=== PATIENT | female | born 1990 | race Caucasian/White ===

== ENCOUNTER 2016-07-31 00:38 | Emergency (ER) | payer MEDICAID ==
[~2016-07-31] VITALS: Ht 167.6 cm; Wt 56.7 kg
[2016-07-31] MEDS ORDERED: IV NS 0.9% 1,000 ML BAG IV ONE (01:00)
[2016-07-31] MEDS ORDERED: IV SET PRIMARY 1 EA INFUS.SET MC ONE (01:02)
[2016-07-31] MEDS ORDERED: IV NS 0.9% 1,000 ML ONE (01:02)
--- NOTE | 2016-07-31 01:14 | NUR ---
PT PRESENTED TO THE ER WITH A C/O ABD PAIN. PT STATED THAT SHE USES DRUGS AND IS 7 MONTHS .
[2016-07-31 01:15] LABS: HEMATOCRIT 31 % (33-45); HEMOGLOBIN 10.3 g/dL (11.5-14.8); LYMPHOCYTES # (AUTO) 0.5 /CMM (0.8-4.8); LYMPHOCYTES % (AUTO) 2.2 % (20.0-44.0); MEAN CORPUSCULAR HEMOGLOBIN 27 PG (26.0-33.0); MEAN CORPUSCULAR HGB CONC 34 g/dl (31.0-36.0); MEAN CORPUSCULAR VOLUME 81 fL (82-100); MONOCYTES # (AUTO) 0.7 /CMM (0.1-1.30); NEUTROPHILS % (AUTO) 94.8 % (43.0-81.0); PLATELET COUNT (AUTO) 349 /CMM (150-450); RDW COEFFICIENT OF VARIATION 13.3 (11.5-15.0); RED BLOOD CELL COUNT(AUTO) 3.78 MIL/uL (4.0-5.2); WHITE BLOOD COUNT (AUTO) 22.2 K/uL (4.3-11.0)
[2016-07-31 01:32] LABS: CALCIUM, SERUM 8.4 mg/dL (8.5-10.1); CREATININE 0.5 mg/dL (0.6-1.3); POTASSIUM 3.2 mmol/L (3.5-5.1)
[2016-07-31 01:39] LABS: INR 0.94 (0.87-1.13); PROTHROMBIN TIME 10.2 SECS (9.5-12.7)
--- NOTE | 2016-07-31 01:57 | NUR ---
PT IS C/O CRAMPING. URINE SAMPLE OBTAINED AND SENT TO LAB.
[2016-07-31 01:58] LABS: BAND % (MANUAL) 14 % (0.0-5.0); LYMPHOCYTES % (MANUAL) 1 % (16-48); MONOCYTES % (MANUAL) 3 % (0-11.0); NEUTROPHILS % (MANUAL) 82 (42-76)
[2016-07-31 01:59] LABS: BASOPHILS % (MANUAL) 0 % (0.0-2.0); EOSINOPHILS % (MANUAL) 0 % (0-4); PLATELET ESTIMATE ADEQUATE
--- NOTE | 2016-07-31 02:00 | NUR ---
PT IS C/O CRAMPING PAIN AND WANTS PAIN MEDICATION. PT WAS TOLD WHY WE CAN'T GIVE HER PAIN MEDICATION AT THIS TIME. PT WAS TOLD THAT WE ARE WAITING FOR THE US TECH TO ARRIVE FOR AN ULTRASOUND. PT STATED: "IF THE BABY HAS NO HEARTBEAT CAN I GET MEDICATION AFTER THE ULTRASOUND?". DR. NUÑEZ WAS TOLD RE: PT'S STATEMENT.
--- NOTE | 2016-07-31 02:06 | NUR ---
US IS AT THE BEDSIDE.
[2016-07-31 02:17] LABS: BILIRUBIN,URINE NEGATIVE (NEGATIVE); BLOOD, URINE 3+ Ery/uL (NEGATIVE); COLOR,URINE YELLOW (YELLOW); KETONES,URINE 3+ (NEGATIVE); LEUKOCYTE ESTERASE ,URINE 1+ (NEGATIVE); NITRITE, URINE NEGATIVE (NEGATIVE); PH,URINE 8.5 (5.0-8.0); PROTEIN,URINE 2+ mg/dl (NEGATIVE); UGLUCOSE NEGATIVE (NEGATIVE)
[2016-07-31 02:23] LABS: APPEARANCE,URINE CLOUDY (CLEAR)
[2016-07-31 02:25] LABS: RBC,URINE TOO NUMEROUS TO COUN /HPF (0-2)
[2016-07-31 02:26] LABS: ADD URINE CULTURE YES; BACTERIA,URINE None seen /HPF (None Seen); SQUAMOUS EPITHELIAL CELL,UR Few /HPF (None Seen)
--- NOTE | 2016-07-31 02:27 | NUR ---
PT SCREAMED: "SOMETHING COMING!" I LOOKED AND THE HEAD OF THE BABY WAS . PT WAS TOLD TO KEEP CALM AND NOT TO PUSH.
--- NOTE | 2016-07-31 02:28 | NUR ---
CALLED 911 FOR TRASPORT TO [facility].
--- NOTE | 2016-07-31 02:31 | NUR ---
BABY NAVEED'S MOTHER SCREAMED: "I DON'T WANT TO SEE IT". PT SCREAMED AND LOOKED AWAY WHEN SHE SAW THE BABY.
--- NOTE | 2016-07-31 02:31 | NUR ---
- RESP 1 PULSE 2 = SCORE 3
--- NOTE | 2016-07-31 02:31 | NUR ---
LIVE NOTED. SUCTIONING. CORD CLAMPED. @023 BABY WAS MOVED TO PED BED AND RT AT THE BEDSIDE. BAGGING IN PROCESS.
--- NOTE | 2016-07-31 02:43 | NUR ---
UNABLE TO INTUBATE. CPAP IN PROGRESS. Addendum: 07/31/[email or web address] NUÑEZ IS WORKING ON BABY LUCIO. BABY ON CPAP. UNABLE TO INTUBATE.
--- NOTE | 2016-07-31 02:49 | NUR ---
HEAD OF EMS IS SPEAKING TO DR. NUÑEZ.
--- NOTE | 2016-07-31 02:49 | NUR ---
EMS IN THE BUILDING.
--- NOTE | 2016-07-31 02:54 | NUR ---
HR 139 02 SAT 99. Addendum: 07/31/16 at 0315 by TANA BABY HR 139 02 SAT 99.
--- NOTE | 2016-07-31 03:03 | NUR ---
DR. VILLALTA ACCEPTED PT AT [facility].
[2016-07-31 03:10] VITALS: BP 106/66
--- NOTE | 2016-07-31 03:10 | NUR ---
PT TRANSPORTED OUT VIA EMS.
== END 2016-07-31 03:10 | disposition short-term general hospital (02) ==
LOC: ER 00:41
DX: O60.12X0 Preterm labor second trimester with preterm delivery second trimester, not applicable or unspecified (principal); O41.02X0 Oligohydramnios, second trimester, not applicable or unspecified; Z3A.24 24 weeks gestation of pregnancy; Z37.0 Single live birth; R82.79 Other abnormal findings on microbiological examination of urine
CPT/HCPCS: 36415; 59409; 76805; 80048; 81001; 84702; 85025; 85730; 87086; 92950; 96360; 99291; 99292; A4606; J7030; Z7610; 81000-TC

== ENCOUNTER 2022-08-15 20:24 | Emergency (ER) | payer MEDICAID ==
[~2022-08-15] VITALS: Ht 170.2 cm; Wt 54.4 kg
[2022-08-15] MEDS ORDERED: NABU-141 PO (20:59)
[2022-08-15] MEDS ORDERED: PRED20TA PO (20:59)
[2022-08-15] MEDS ORDERED: KETOROLAC TROMETHAMINE INJ 60 MG/2 ML VIAL IM ONE ×2 (21:00→21:39)
[2022-08-15] MEDS ORDERED: predniSONE 20 MG TABLET PO ONE (21:00)
[2022-08-15] MEDS ORDERED: predniSONE 20 MG TABLET ONE (21:39)
--- NOTE | 2022-08-15 21:59 | NUR ---
PT IN BED 13 A/O X4 10 PAIN COMING FROM BACK AFTER A FALL THAT TOOK PLACE MONTHS AGO. CONNECTED TO BEDSIDE MONITOR SEEN BY .
[2022-08-15 23:31] VITALS: BP 127/85
== END 2022-08-15 23:31 | disposition home or self-care (01) ==
LOC: ER 20:27
DX: M54.31 Sciatica, right side (principal); Z79.899 Other long term (current) drug therapy
CPT/HCPCS: 99283; 96372; J7512; J1885

== ENCOUNTER 2022-08-16 07:49 | Emergency (ER) | payer MEDICAID ==
[~2022-08-16] VITALS: Ht 170.2 cm; Wt 54.4 kg
[~2022-08-16 07:49] MED LIST: NABU-141 PO; PRED20TA PO
[2022-08-16 08:10] VITALS: BP 99/63
[2022-08-16] MEDS ORDERED: KETOROLAC TROMETHAMINE INJ 30 MG/ML VIAL ONE (08:27)
[2022-08-16] MEDS ORDERED: KETOROLAC TROMETHAMINE INJ 30 MG/ML VIAL IM ONE (08:30)
== END 2022-08-16 08:48 | disposition home or self-care (01) ==
LOC: ER 07:52
DX: M54.31 Sciatica, right side (principal); Z90.49 Acquired absence of other specified parts of digestive tract; Z79.899 Other long term (current) drug therapy
CPT/HCPCS: 99283; 96372; J1885